=== PATIENT | female | born 1965 | race Caucasian/White ===

== ENCOUNTER 2016-10-04 19:25 | Emergency (ER) | payer BC, OTHER ==
--- NOTE | 2016-10-04 19:41 | UC ---
Skin Complaint HPI - HPI Summary HPI Summary: 51 YEAR OLD FEMALE WITH RECENT LAPARSCOPIC VENTRAL HERNIA REPAIR PRESENTS WITH COMPLAINS OF RASH ON STOMACH. I WILL SEND HER TO THE ER TO RULE OUT NEC FASCIITIS. - History of Current Complaint Time Seen by Provider: 10/04/16 19:36 Stated Complaint: RASH ON ABDOMEN Hx Last Menstrual Period: 03/2013 - Allergy/Home Medications Allergies/Adverse Reactions: Allergies Allergy/AdvReac Type Severity Reaction Status Date / Time bananas Allergy Red Uncoded 10/04/16 19:40 Blotches canteloupe Allergy Hives Uncoded 10/04/16 19:40 environmental Allergy Congestion Uncoded 10/04/16 19:40 Honeydew Allergy Hives Uncoded 10/04/16 19:40 watermelon Allergy Hives Uncoded 10/04/16 19:40 Home Medications: Home Medications Lisinopril TAB* [Prinivil TAB*] 5 mg PO DAILY 10/04/16 [History Confirmed ] Review of Systems Constitutional: Negative Skin: Bruising - ON STOMACH Eyes: Negative ENT: Negative Respiratory: Negative Cardiovascular: Negative Gastrointestinal: Negative Genitourinary: Negative Motor: Negative Neurovascular: Negative Musculoskeletal: Negative Neurological: Negative Psychological: Negative All Other Systems Reviewed And Are Negative: Yes PMH/Surg Hx/FS Hx/Imm Hx Previously Healthy: Yes - Surgical History Surgical History: Yes Surgery Procedure, Year, and Place: 2 C-Sections. 8 Kidney Surgeries. hysterectomy 03/2013 - Social History Alcohol Use: None Substance Use Type: None Smoking Status (MU): Never Smoked Tobacco Physical Exam Triage Information Reviewed: Yes Eye Exam: Normal ENT Exam: Normal Dental Exam: Normal Neck exam: Normal Neck: Positive: 1 Respiratory Exam: Normal Cardiovascular Exam: Normal Abdomen Description: Positive: Other: - BRUISING ON STOMACH Musculoskeletal Exam: Normal Neurological Exam: Normal Psychological Exam: Normal Skin: Positive: Other - BRUSING ON STOMACH Course/Dx - Diagnoses Provider Diagnoses: BRUSING ON STOMACH AFTER HERNIA SURGERY Discharge - Discharge Plan Condition: Stable Disposition: HOME Patient Education Materials: Acute Rash (ED) Referrals: Geena Donato MD [Primary Care Provider] - If Needed Additional Instructions: PLEASE GO TO ER TO RULE OUT NEC FASCIITIS OF THE ABDOMEN POST HERNIA SURGERY.
[2016-10-04 19:45] VITALS: BP 125/57
== END 2016-10-04 20:06 | disposition home or self-care (01) ==
LOC: UCCORT 19:25
DX: S30.1XXD Contusion of abdominal wall, subsequent encounter (principal); Y83.8 Other surgical procedures as the cause of abnormal reaction of the patient, or of later complication, without mention of misadventure at the time of the procedure
CPT/HCPCS: 99211; G0463